=== PATIENT | male | born 1965 | race Caucasian/White ===

== ENCOUNTER 2017-02-15 09:35 | Outpatient (CLI) | payer BC ==
--- NOTE | 2017-02-15 10:06 | RAD ---
CERVICAL SPINE 3 VIEWS: HISTORY: Followup post neck surgery January 31, 2017. FINDINGS/IMPRESSION: There are postop changes of anterior spinal fusion with plate and screws and intradiskal prostheses at C5-6 level in good position and alignment. No fracture or subluxation is seen. Metallic hardwar e is intact. There are degenerative changes at C6-7 level. POS: [facility]
== END 2017-02-15 09:36 | disposition home or self-care (01) ==
LOC: TBSIIMAG 09:35
PROVIDERS: ATTEND Physician Assistant
DX: M54.2 Cervicalgia (principal); M47.812 Spondylosis without myelopathy or radiculopathy, cervical region; Z98.1 Arthrodesis status
CPT/HCPCS: 72040

== ENCOUNTER 2017-04-17 12:43 | Outpatient (CLI) | payer BC ==
--- NOTE | 2017-04-17 14:01 | RAD ---
THREE VIEWS CERVICAL SPINE: Date: 04-17-17 Comparison: 02-15-17 History: Cervical disc degenerative change. FINDINGS: Open mouth odontoid view demonstrates normal appearing dens and C1-2 articulation. There is anterior discectomy and fusion hardware present at the C5-6 level, stable. There is no anterolisthesis or retr olisthesis seen. No significant prevertebral soft tissue swelling. There is disc space narrowing with anterior osteophyte formation at C6-7. There are post-surgical cli ps within the anterior aspect of the neck at the cervicothoracic junction to the right of midline, st able. IMPRESSION: 1. Stable three view examination of the cervical spine. POS: [facility]
== END 2017-04-17 12:44 | disposition home or self-care (01) ==
LOC: TBSIIMAG 12:43
PROVIDERS: ATTEND Neurological Surgery
DX: M50.30 Other cervical disc degeneration, unspecified cervical region (principal)
CPT/HCPCS: 72040